=== PATIENT | male | born 1965 | race Caucasian/White ===

== ENCOUNTER 2016-10-30 07:45 | Emergency (ER) | payer OTHER ==
--- NOTE | 2016-10-30 07:51 | PDOC ---
History of Present Illness - General History Source: Patient Exam Limitations: No Limitations - History of Present Illness Initial Comments: 10/30/16 08:46 The patient is a 51 year old male, with a significant past medical history of migraine, on methadone who presents to the emergency department with left sided headache since this morning. The patient ranks his headache a 7/10 in pain intensity, is pouding in nature. It is associated with photophobia. He reports also having one episode of vomiting this morning, nonbilious and nonbloody. The patient in addition notes having a history of migraine headaches in the past with similar symptoms and , noting his last episode was several years ago. He notes his symptoms today are much less severe than his previous migraine headache in the past. The patient also notes he hasnt been sleeping well the past few nights, often waking from sleep in the middle of the night. He denies any recent injury or fall. He denies any recent fevers, chills, or dizziness. Pt denies any neck pain. He denies any recent diarrhea or constipation. He denies any recent chest pain or shortness of breath. He denies any recent dysuria, frequency, urgency or hematuria. No associaed vision changes, numbness/ tinging/weakness. Allergies: NKA Past surgical history: None reported. Social History: Current smoker ( pack a day). 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 He also relates occasional EtOH use. <Negro Henson - Last Filed: 10/30/16 08:46> <Cassius Flynn - Last Filed: 10/30/16 10:55> - General Stated Complaint: HEADACHE Time Seen by Provider: 10/30/16 07:47 Past History <Negro Henson - Last Filed: 10/30/16 08:46> - Past Medical History Kidney Stones: Yes Suicide Attempt (Hx): No - Immunization History Td Vaccination: Yes TDAP Vaccination: No Immunization Up to Date: Yes - Psycho/Social/Smoking Cessation Hx Anxiety: No Suicidal Ideation: No Smoking History: Never smoked Have you smoked in the past 12 months: No Hx Alcohol Use: No Drug/Substance Use Hx: No Substance Use Type: None <Cassius Flynn - Last Filed: 10/30/16 10:55> - Past Medical History Allergies/Adverse Reactions: Allergies Allergy/AdvReac Type Severity Reaction Status Date / Time No Known Allergies Allergy Verified 10/30/16 07:49 Home Medications: Ambulatory Orders Methadone [Dolophine -] 100 mg PO DAILY 10/30/16 Review of Systems - Review of Systems Able to Perform ROS?: Yes Comments:: 10/30/16 08:46 CONSTITUTIONAL: No reported: Fever, Chills, Diaphoresis, Generalized Weakness, Malaise, Loss of Appetite HEENT: No reported: Rhinorrhea, Nasal Congestion, Throat Pain, Throat Swelling, Difficulty Swallowing, Mouth Swelling, Ear Pain, Eye Pain, Visual Changes CARDIOVASCULAR: No reported: Chest Pain, Syncope, Palpitations, Irregular Heart Rate, Peripheral Edema RESPIRATORY: No reported: Cough, Shortness of Breath, SOB with Exertion, Orthopnea, Wheezing , Stridor, Hemoptysis GASTROINTESTINAL: No reported: Abdominal pain, Abdominal Distension, Nausea, Vomiting, Diarrhea, Constipation, Melena, Hematochezia GENITOURINARY: No reported: Dysuria, Frequency, Urgency, Hesitancy, Flank Pain, Genital Pain MUSCULOSKELETAL: No reported: Myalgia, Arthralgia, Joint Swelling, Back pain, Neck Pain SKIN: No reported: Rash, Itching, Pallor HEMATOLOGIC/IMMUNOLOGIC: No reported: Easy Bleeding, Easy Bruising, Lymphadenopathy, Frequent infections ENDOCRINE: No reported: Unexplained Weight Gain, Unexplained Weight Loss, Heat Intolerance , Cold Intolerance NEUROLOGIC: +Headache. No reported: Focal Weakness, Paresthesias, Vertigo, Lightheadedness, Unsteady Gait, Seizure, Mental Status Changes, Incontinence PSYCHIATRIC: No reported: Anxiety, Depression <Negro Henson - Last Filed: 10/30/16 08:46> *Physical Exam - Vital Signs Last Vital Signs Temp Pulse Resp BP Pulse Ox 97.1 F L 71 20 148/65 96 10/30/16 07:50 10/30/16 07:50 10/30/16 07:50 10/30/16 07:50 10/30/16 07:50 - Physical Exam Comments: 10/30/16 08:46 GENERAL: The patient is awake, alert, and fully oriented, Nontoxic - in no acute distress. HEAD: Normocephalic, atraumatic. EYES: extraocular movements intact, sclera anicteric, conjunctiva clear. Pupils 3mm symmetrically reactive to light. ENT: Normal voice, Moist mucous membranes. NECK: Normal range of motion, supple LUNGS: Breath sounds equal, clear to auscultation bilaterally. No wheezes, no rhonchi, no rales. HEART: Regular rate and rhythm, without murmur, rub or gallop. ABDOMEN: Soft, nontender, normoactive bowel sounds. No guarding, no rebound.No CVA tenderness EXTREMITIES: Normal range of motion, no edema. No clubbing or cyanosis. No cords , erythema, or tenderness. NEURO: Mental status: The patient is oriented x3. Cranial nerves: Cranial nerves II through XII are intact Motor: The upper extremities are 5 over 5 in all muscle groups. The lower extremities are 5 over 5 in all muscle groups. No pronator drift. Sensation: Sensation is intact to light touch throughout. Neg romberg Cerebellar: [id number] is normal in both upper extremities. Heel-knee- reardon is normal in both lower extremities. Reflexes: 2+ and symmetric in the upper and lower extremities. Gait: Normal. Heel and toe walking are normal. Tandem gait is normal. PSYCH: Normal mood, normal affect. SKIN: Warm, Dry, normal turgor. <Negro Henson - Last Filed: 10/30/16 08:46> Heart Score/ECG Review - ECG Impressions Comment:: 10/30/16 09:36 Twelve-lead EKG was performed and reviewed by me. There is normal sinus rhythm with a normal rate. rate of 65 The intervals are normal. There is normal R wave progression There are no ST or T wave abnormalities. <Cassius Flynn - Last Filed: 10/30/16 10:55> ED Treatment Course - LABORATORY CBC & Chemistry Diagram: 10/30/16 08:05 10/30/16 08:05 - ADDITIONAL ORDERS Additional order review: Laboratory Results 10/30/16 07:48 POC Glucometer [id number] 10/30/16 10/30/16 08:05 07:48 RBC 4.99 MCV 89.3 MCHC 33.5 RDW 14.4 MPV 9.1 Neutrophils % 50.1 Lymphocytes % 37.7 D Monocytes % 6.8 Eosinophils % 4.5 Basophils % 0.9 POC Glucometer [id number] - Medications Given in the ED: ED Medications Discontinued Medications Generic Name Dose Route Start Last Admin Trade Name Freq PRN Reason Stop Dose Admin Metoclopramide HCl 10 mg 10/30/16 07:52 10/30/16 08:05 Reglan Injection - IVPUSH 10/30/16 07:53 10 mg ONCE ONE Administration <Negro Henson - Last Filed: 10/30/16 08:46> - LABORATORY CBC & Chemistry Diagram: 10/30/16 08:05 10/30/16 09:49 <Cassius Flynn - Last Filed: 10/30/16 10:55> Medical Decision Making - Medical Decision Making 10/30/16 07:53 51y M hx of migraine headaches presents with complaint of waking up with a left sided pounding headache associated with photophobia, nausea/vomiting. No associated numbness/tingling/weakness, neck pain, back pain, chest pain, fever/ chills. Similar in nature to prior migraines in the past, but not as severe as previous. On exam the pt is well appearing in no distress, normal neuro exam, no sasymetry noted, normal cerebellar exam, normal gait. Suspect migraine headache. will give pt some reglan will ck labs will reassess A portion of this note was documented by scribe services under my direction. I have reviewed the details of the note, within reason, and agree with the documentation with the following case summary and management plan written by me 10/30/16 10:53 pts headache has completely resolved labs reviewed will dc the pt with PMD fu return precautions were discussed I discussed the physical exam findings, ancillary test results and final diagnoses with the patient. I answered all of the patient's questions. The patient was satisfied with the care received and felt comfortable with the discharge plan and treatment plan. The patient will call their primary care physician within 24 hours to arrange follow-up and will return to the Emergency Department with any new, persistent or worsening symptoms. <Cassius Flynn - Last Filed: 10/30/16 10:55> *DC/Admit/Observation/Transfer - Attestations Scribe Attestion: 10/30/16 08:47 Documentation prepared by Negro Henson, acting as medical investigator for Cassius Flynn MD. <Negro Henson - Last Filed: 10/30/16 08:46> - Discharge Dispostion Admit: No <Cassius Flynn - Last Filed: 10/30/16 10:55> Diagnosis at time of Disposition: Headache Qualifiers: Headache type: unspecified Headache chronicity pattern: acute headache Intractability: not intractable Qualified Code(s): R51 - Headache - Discharge Dispostion Disposition: HOME Condition at time of disposition: Improved - Referrals Referrals: [facility] [Provider Group] - Patient Instructions Printed Discharge Instructions: DI for Migraine Additional Instructions: Return to the emergency department immediately with ANY new, persistent or worsening symptoms including worsening headache, vision changes, numbness/ tingling/weakness, persistent nausea and vomiting or any other concerns. Make sure you are getting adaqute sleep and hydration. You MUST call and follow up with your doctor tomorrow for further evaluation of your symptoms. Your emergency department visit is not complete without a followup with your doctor for reevaluation. Results were discussed with you. Please make sure your doctor reviews the results of your emergency evaluation. If you had any xrays during your visit, it was read preliminarily by myself, a Radiologist will review it and if there are any additional findings we will call you. Print Language: FAROESE
[2016-10-30] MEDS ORDERED: METOCLOPRAMIDE HCL INJECTION 10 MG/2 ML VIAL IVPUSH ONE (07:52)
[2016-10-30 07:54] VITALS: TEMP 97.1; BMI 34.9
[2016-10-30] MEDS ORDERED: METOCLOPRAMIDE HCL INJECTION 10 MG/2 ML VIAL ONE (07:56)
[2016-10-30 08:10] LABS: BASOPHIL 0.9 % (0-2.0); EOSINOPHIL 4.5 % (0-4.5); MCH 29.9 pg (25.7-33.7); MCHC 33.5 g/dl (32.0-35.9); MEAN CELL VOLUME 89.3 fl (80-96); MEAN PLT VOLUME 9.1 fl (7.5-11.1); NEUTROPHILS 50.1 % (42.8-82.8); PLATELET COUNT 152 K/MM3 (134-434); RDW 14.4 % (11.9-15.9); WHITE BLOOD COUNT 6.5 K/mm3 (4.0-10.0)
[2016-10-30 10:21] LABS: ALBUMIN 3.7 g/dl (3.4-5.0); ANION GAP 3 (8-16); CALCIUM 8.8 mg/dL (8.5-10.1); CO2 34 mmol/L (21-32); CREATININE 0.9 mg/dL (0.7-1.3); GLUCOSE,RANDOM 118 mg/dL (74-106); SGOT/AST 22 U/L (15-37); SGPT/ALT 30 U/L (12-78)
[2016-10-30 10:23] LABS: ALK PHOS 82 U/L (45-117); BILIRUBIN,TOTAL 0.5 mg/dL (0.2-1.0)
[2016-10-30 11:05] VITALS: BP 138/75; PULSE 73
--- NOTE | 2016-10-30 11:26 | EKG ---
Test Reason : Blood Pressure : / mmHG Vent. Rate : 065 BPM Atrial Rate : 065 BPM P-R Int : 176 ms QRS Dur : 096 ms QT Int : 432 ms P-R-T Axes : 023 -10 010 degrees QTc Int : 449 ms NORMAL SINUS RHYTHM NORMAL ECG NO PREVIOUS ECGS AVAILABLE Confirmed by CHRISTIE MORENO, CLOTILDE ([id number]) on 10/30/2016 11:26:30 AM Referred By: Confirmed By:CLOTILDE SORIANO MD
== END 2016-10-30 11:05 | disposition home or self-care (01) ==
LOC: JER 07:45
PROC: 3E033GC Introduction of Other Therapeutic Substance into Peripheral Vein, Percutaneous Approach (ICD-10-PCS; principal; 2016-10-30)
DX: G43.909 Migraine, unspecified, not intractable, without status migrainosus (principal)
CPT/HCPCS: 36415; 80053; 85025; 93005; 93010; 96374; 99283-25